=== PATIENT | female | born 1945 | race Caucasian/White ===

== ENCOUNTER → 2016-12-10 15:53 | Emergency (ER) | payer MEDICARE, OTHER ==
[~2016-12-10 15:53] MED LIST: DOXYcycline CAP(*) 100 MG PO ONE; Tetan/Diph/Pertus SYR(Tdap)* 0.5 ML SYR(BOOSTRIX) use SYR IM ONE
[2016-12-10 16:03] VITALS: BP 171/80
--- NOTE | 2016-12-10 16:36 | ED ---
Bite Injury/Animal - HPI Summary HPI Summary: Samir presents with multiple cat bites on right and left hand. She states she has puncture wounds present. She was holding her cat at the vet when the cat went crazy and bite her. Her cat was immunized for rabies 2 weeks ago. She does not know when her last tetanus was. She does have an allergy to PCN. She did clean the area with peroxide. - History of Current Complaint Chief Complaint: EDGeneral Stated Complaint: MULTIPLE CAT BITES Time Seen by Provider: 12/10/16 16:08 Pain Intensity: 1 - Allergies/Home Medications Allergies/Adverse Reactions: Allergies Allergy/AdvReac Type Severity Reaction Status Date / Time No Known Allergies Allergy Verified 12/10/16 16:36 PMH/Surg Hx/FS Hx/Imm Hx Endocrine/Hematology History: Denies: Hx Anticoagulant Therapy Cardiovascular History: Reports: Hx Hypertension Infectious Disease History: No Infectious Disease History: Denies: Traveled Outside the [place] in Last 30 Days - Family History Known Family History: Positive: Cardiac Disease - Social History Alcohol Use: None Substance Use Type: Reports: None Smoking Status (MU): Never Smoked Tobacco Review of Systems Negative: Fever Negative: Chest Pain Negative: Shortness Of Breath Positive: Other - cat bites All Other Systems Reviewed And Are Negative: Yes Physical Exam Triage Information Reviewed: Yes Vital Signs On Initial Exam: Initial Vitals Temp Pulse Resp 99.0 F 81 20 12/10/16 15:59 12/10/16 15:59 12/10/16 15:59 Vital Signs Reviewed: Yes Appearance: Positive: Well-Appearing Skin: Positive: Warm, Dry, Other - multiple puncture wounds across right and left hand with no warmth or redness Head/Face: Positive: Normal Head/Face Inspection Eyes: Positive: Normal, Conjunctiva Clear Respiratory/Lung Sounds: Positive: Clear to Auscultation, Breath Sounds Present Cardiovascular: Positive: Normal, RRR Diagnostics - Vital Signs Vital Signs Temp Pulse Resp BP Pulse Ox 12/10/16 16:01 99.0 F 82 20 171/80 97 12/10/16 15:59 99.0 F 81 20 - Laboratory Lab Statement: Any lab studies that have been ordered have been reviewed, and results considered in the medical decision making process. Bite Injury Course/Dx - Course Course Of Treatment: Samir presents with multiple cat bites on right and left hand. She states she has puncture wounds present. She was holding her cat at the vet when the cat went crazy and bite her. Her cat was immunized for rabies 2 weeks ago. She does not know when her last tetanus was. She does have an allergy to PCN. She did clean the area with peroxide. gave tetanus and will treat with doxcycline. warned of any signs of infection to return. patient understands and agrees with plan - Diagnoses Differential Diagnosis/HQI/PQRI: Positive: Crush Injury, Puncture, Superficial Infection Provider Diagnosis: Cat bite Discharge - Discharge Plan Condition: Good Disposition: HOME Prescriptions: DOXYcycline CAP(*) [DOXYcycline 100MG CAP(*)] 100 mg PO BID #9 cap Patient Education Materials: Animal Bite (ED) Referrals: Non Staff,Doctor [Primary Care Provider] - Additional Instructions: Take doxycycline two times a day for 5 days, first dose given in ED so start tomorrow with second dosage Clean area once a day and placed neosporin on area Return to ED if develop any spreading redness, fever, or any new or worsening symptoms
== END | disposition home or self-care (01) ==
LOC: ED 15:53
DX: S61.451A Open bite of right hand, initial encounter (principal); S61.452A Open bite of left hand, initial encounter; W55.01XA Bitten by cat, initial encounter; Y93.9 Activity, unspecified; Y92.89 Other specified places as the place of occurrence of the external cause; Y99.8 Other external cause status
CPT/HCPCS: 90471; 90715; 99282; A9270-GY